=== PATIENT | female | born 1955 | race Caucasian/White ===

== ENCOUNTER 2020-05-23 15:38 | Inpatient (IN) | payer BC ==
[~2020-05-23] VITALS: Ht 170.2 cm; Wt 94.9 kg
--- NOTE | ~2020-05-23 | O ---
[facility] [place] [address] OPERATIVE REPORT Name: SOLEDAD IVORY Room #: 356-P [facility] IN M.R.#: [id number] Admission: 05/23/20 Attend Phys: Wily Ortez Discharge: 05/25/20 Date of : 57 Report #: [id number] THIS REPORT FOR: cc: CHARLEY GARCIA Physician not on staff Leonard Watters DPM ~ CC: CHARLEY Ortez Physician staff DATE OF SERVICE: 05/24/2020 PREOPERATIVE DIAGNOSIS: Right foot diabetic foot ulcer with osteomyelitis. POSTOPERATIVE DIAGNOSIS: Right foot diabetic foot ulcer with osteomyelitis and deep foot infection. PROCEDURE: Partial first ray resection and two hind foot debridement subcutaneous and tendon. DESCRIPTION OF PROCEDURE: The patient was transported to the operating room and placed on the operating table in supine position. General anesthesia was administered and the right lower extremity was prepped and draped in the usual sterile manner. Attention was directed to the right first MPJ where a racquet-type incision was made removing the hallux and exposing the head of the first metatarsal, which has significant necrotic tissue and infection. I resected the distal third of the first metatarsal. After removing the distal third metatarsal, I removed the sesamoid with the 15 blade. At this time, I noted that there was tracking of the infection proximally along the first metatarsal plantarly and back into the hind foot plantar to the calcaneus about midway, also tracked laterally about midway down the first metatarsal to the lateral aspect of the foot sub fifth metatarsal. I used a rongeur to remove all questionable tissue and removed the flexor hallucis longus tendon back far proximal as possible. I made a second incision to make sure I get a plantar foot cleaned out and get a good look at it one more plantarly so she would be weightbearing at the incision line. It did look very good, but there is still questionable tissue. I did send tissue for aerobic, anaerobic, fungal and lavaged this area out thoroughly. Two retention stitches to keep the wound ____ flaps for retraction and will be setting up of VeraFlo wound VAC probably on Thursday, and today is . Most likely, it will be a second procedure. I will reevaluate and see if this [facility] [address] [place] [address] OPERATIVE REPORT Name: SOLEDAD IVORY NANCY Room #: 356-P [facility] IN M.R.#: [id number] Admission: 05/23/20 Attend Phys: Wily Ortez Discharge: 05/25/20 Date of : 57 Report #: [id number] is necessary since she is feeling fine or if we need to make sure it was clean and then do a delayed wound closure. The patient left the left the operating suite in stable condition with neurovascular status intact. The patient will be followed by myself in the next day or two. By: 0908 Alok Watters, ISHMAEL /nt
--- NOTE | ~2020-05-23 | HC ---
[facility] [place] [address] CONSULTATION Name: SOLEDAD IVORY Room #: 356-P ADM IN M.R.#: [id number] Admission: 05/23/20 Attend Phys: Wily Ortez Discharge: Date of : 57 Report #: [id number] THIS REPORT FOR: cc: MASON GARCIA Physician not on staff Josiah Yoder MD ~ CC: MASON Ortez Physician staff DATE OF SERVICE: 05/24/2020 WOUND CARE CONSULTATION PERSONAL PHYSICIAN: Dr. Mason Garcia. CHIEF COMPLAINT: Right great toe wound with underlying osteomyelitis. HISTORY OF PRESENT ILLNESS: This is a 65-year-old white female who I saw in the wound clinic yesterday for chronic ulcer to her right great toe, which started approximately 3 months ago; however, due to the COVID-19 pandemic, she was afraid to coming to the hospital to be evaluated and the wound has gotten progressively worse, extremely foul smelling and in the clinic yesterday, it was felt that the patient most likely had underlying osteomyelitis with the cellulitis and need to be admitted for IV antibiotics and surgical debridement and possible amputation. The patient had an MRI last night, which confirmed the osteomyelitis of the right great toe and first metatarsal head. The patient was seen by Dr. Watters of Podiatry and is planning to have a first ray amputation performed later today. The patient also has ulcers on the right heel, which is a pressure ulcer and a chronic ulcer of the left fifth metatarsal head. The patient states all of these have been present once again for several months. The patient denies fevers or chills. The patient states that she does have some pain in her ulcerations, but that is usually when the wounds have been manipulated. The patient denies any other associated concerns at this time. PAST MEDICAL HISTORY: Significant for hypertension, hyperlipidemia, peripheral neuropathy, diabetes mellitus type 2. CURRENT MEDICATIONS: Multiple, I reviewed the patient's medication list. DRUG ALLERGIES: None. SOCIAL HISTORY: The patient does not smoke or drink alcohol. FAMILY HISTORY: Not pertinent to current medical condition. [facility] [address] [place] [address] CONSULTATION Name: SOLEDAD IVORY Room #: 356-P [facility] IN M.R.#: [id number] Admission: 05/23/20 Attend Phys: Wily Ortez Discharge: Date of : 57 Report #: [id number] REVIEW OF SYSTEMS: CONSTITUTIONAL: The patient denies fevers or chills. NEUROLOGIC: The patient complains of neuropathy in both feet, but denies headache. EYES: No complaints. ENT: No complaints. CARDIAC: The patient denies chest pain or palpitations. Does have chronic mild lower extremity edema. RESPIRATORY: The patient denies shortness of breath, cough or wheezes. GASTROINTESTINAL: The patient denies nausea, vomiting, or abdominal pain. GENITOURINARY: The patient denies urgency or frequency. MUSCULOSKELETAL: No complaints. SKIN: The patient has chronic ulcers on the right first metatarsal head, right heel and the left fifth metatarsal head. PHYSICAL EXAMINATION: VITAL SIGNS: Temperature 37.1, pulse 64, respirations 16, BP 169/77. GENERAL: This is an alert and oriented x 3, pleasant white female who is in absolutely no distress. HEENT: Normocephalic, atraumatic. Mucous membranes are slightly dry. Pupils are round. Sclerae white. NECK: Supple, nontender. LUNGS: Clear. HEART: Regular. ABDOMEN: Soft, nontender. EXTREMITIES: The patient moves all extremities without difficulty. Distal pulses are 1+ dorsalis pedis. On the right heel, there is a stage 3 decubitus ulcer, which is clean and granulating without signs of infection. There is no significant tunneling or undermining, 100% granulation tissue. On the left first metatarsal head is a necrotic foul-smelling ulceration with essentially 100% dark slough, which probes to bone with surrounding erythema and warmth. On the left foot on the fifth metatarsal head on the lateral aspect is a chronic ulcer with callus and central area of slough. Surrounding area is not erythematous or tender. Left dorsalis pedis is 1+. Left heel is intact. NEUROLOGIC: Cranial nerves 2-12 are grossly intact. Motor and sensory grossly intact. LABORATORY DATA: White count 7.0, hemoglobin 10.1. BUN 21, creatinine 1.3. IMAGING: Left lower extremity MRI confirms osteomyelitis of the left proximal first phalanx as well as the distal first metatarsal head. IMPRESSION: 1. Chronic ulcer, right first metatarsal head with osteomyelitis and cellulitis. 2. Chronic stage 3 decubitus ulcer, stage III, right heel. [address] [address] CONSULTATION Name: CACHORRO,SOLEDAD CRUZ Room #: 356-P ADM IN M.R.#: [id number] Admission: 05/23/20 Attend Phys: Wily Ortez Discharge: Date of : 57 Report #: [id number] 3. Chronic ulceration, left lateral foot, limited breakdown subcutaneous tissue. 4. Diabetes mellitus type 2. 5. Generalized debility. PLAN: The patient is scheduled for a first ray resection later this afternoon by Dr. Watters. We will continue to follow the patient postoperatively for wound care. We will start the patient on Aquacel Ag to the right heel and left lateral foot ulcerations. We will order Prevalon boots for the patient to wear at all times. We will make sure we maximize the patient's oral protein supplementation for healing. We will utilize physical and occupational therapy as the patient is able to. I appreciate the ability to consult and will continue to follow the patient. By: 1621 [id number] Josiah Yoder MD /sang
[2020-05-23 15:41] VITALS: BP 144/77
[2020-05-23] MEDS ORDERED: NORCO 10-325 T1 EACH PO (16:02)
[2020-05-23] MEDS ORDERED: BUSPIRONE HCL10 MG PO (16:02)
[2020-05-23] MEDS ORDERED: CARAFATE1 GM PO (16:03)
[2020-05-23] MEDS ORDERED: PLAVIX 75 MG TA75 MG PO (16:03)
[2020-05-23] MEDS ORDERED: LISINOPRIL2.5 MG PO (16:04)
[2020-05-23 16:16] LABS: ABSOLUTE NEUTROPHILS 4.7 thou/uL (1.4-8.2); BASOPHILS 0.8 % (0.0-2.0); EOSINOPHILS 1.7 % (0.0-3.0); HEMATOCRIT 29.9 % (37.0-47.0); HEMOGLOBIN 10.1 gm/dL (12.0-15.0); LYMPHOCYTES 24.5 % (24.0-44.0); MCH 30.3 pg (26.0-34.0); MCHC 33.8 g/dL (28.0-37.0); MCV 89.8 fL (80.0-100.0); MONOCYTES 6.1 % (1.0-8.0); PLATELET COUNT 390 thou/uL (150-400); POLYS 66.9 % (36.0-66.0); RBC 3.33 mil/uL (4.20-5.00); RDW 13.8 % (10.5-14.5)
[2020-05-23 16:25] LABS: CALCIUM 9.9 mg/dL (8.5-10.1); CREATININE 1.3 mg/dL (0.6-1.0); POTASSIUM 3.6 mmol/L (3.5-5.1)
[2020-05-23] MEDS ORDERED: BUSPIRONE HCL15 MG PO (16:29)
[2020-05-23] MEDS ORDERED: SYNTHROID150 MCG PO (16:29)
[2020-05-23] MEDS ORDERED: BENTYL 10 MG CA10 MG PO (16:30)
[2020-05-23] MEDS ORDERED: PEPCID40 MG PO (16:31)
[2020-05-23] MEDS ORDERED: METFORMIN HCL500 M3 PO ×2 (16:31)
[2020-05-23] MEDS ORDERED: CARVEDILOL12.5 MG PO (16:32)
[2020-05-23 17:11] LABS: CHOLESTEROL 125 mg/dL (<200); HDL CHOLESTEROL 32 mg/dL (>40); LDL CHOLESTEROL 61 mg/dL (<100); TC:HDL 3.9 Ratio (Not establshd); TRIGLYCERIDE 160 mg/dL (<150); VLDL 32 mg/dL (<40)
[2020-05-23 17:35] LABS: TSH 2.603 uIU/mL (0.358-3.740)
[2020-05-23 18:23] LABS: % SATURATION 10 % (20-39); IRON 23 ug/dL (50-170); TIBC 230 ug/dL (250-450)
[2020-05-23 21:19] VITALS: BP 163/91
[2020-05-23 22:00] VITALS: BP 160/87
[2020-05-24 00:30] VITALS: BP 142/69
--- NOTE | 2020-05-24 02:17 | NUR ---
PT ARRIVED ON UNIT FROM ER AT 2200. ADMITTED WITH DIABETIC FOOT WOUNDS. PICTURES TAKEN. DENIES PAIN. UP WITH ASSIST X1 TO BATHROOM. RESTING COMFORTABLY. NO NEEDS VOICED. CALL LIGHT WITHIN REACH. FREQUENT OBSERVATION.
[2020-05-24 04:36] VITALS: BP 131/69
[2020-05-24 08:52] VITALS: BP 169/77
[2020-05-24] MEDS ORDERED: NORCO 10-325 T1 EACH PO (10:11)
[2020-05-24] MEDS ORDERED: NORCO 5-325 TA1 EAC1 PO (10:13)
[2020-05-24] MEDS ORDERED: LYRICA225 MG PO (11:11)
[2020-05-24] MEDS ORDERED: XANAX 0.5 MG0.5 M1 PO (11:15)
[2020-05-24] MEDS ORDERED: VITAMIN D31250 MC1 PO (11:16)
[2020-05-24] MEDS ORDERED: SEROQUEL 50 MG50 M1 PO (11:18)
[2020-05-24] MEDS ORDERED: SYNTHROID150 MCG PO (11:20)
[2020-05-24] MEDS ORDERED: OXTELLAR XR300 MG PO (11:21)
[2020-05-24] MEDS ORDERED: ASA81BEC PO (11:22)
[2020-05-24] MEDS ORDERED: PRAVACHOL40 M1 PO (11:23)
[2020-05-24] MEDS ORDERED: CARISOPRODOL 3350 M1 PO (11:25)
--- NOTE | 2020-05-24 15:08 | NUR ---
INITIAL ASSESSMENT: Received consult. SW reviewed chart and spoke with nursing and attending physician. Pt was admitted from home due to cellultis of her right great toe. Pt currently off the unit have right partial 1st ray amputation. Per chart, pt does live at home. Therapy to evaluate pt after surgery for recommendation for discharge needs. SW to follow up with pt after surgery to eval and discuss discharge plans.
[2020-05-24 16:28] VITALS: BP 157/77
--- NOTE | 2020-05-24 17:48 | NUR ---
ASSUMED CARE OF PT AT 0700. PT ALERT AND ORIENTED X4 IN NO ACUTE DISTRESS. S/P R PARTIAL 1ST RAY AMPUTATION. WITHOUT BEARING WEIGHT ON RIGHT LEG, BLOOD NOTED TO DRESSING. CHANGED W/ GAUZE KERLIX AND DUTCH WRAP. TOES PALE BUT BLANCHABLE. VITALS STABLE. USING BED GAMEZ TO VOID. IV ABX INFUSING PER ORDER. ON CLEAR LIQUIDS. CHANGED TO MST STATUS. WCM.
[2020-05-24 20:15] VITALS: BP 175/77
[2020-05-25 00:06] LABS: GLYCOHEMOGLOBIN (HGB A1C) 5.3 % (4.8-5.6)
[2020-05-25 04:15] VITALS: BP 153/77
--- NOTE | 2020-05-25 04:30 | NUR ---
PATIENT IS PROGRESSING SLOWLY IN HER CARE PLAN. VITAL SIGNS STABLE WITH PATIENT HAVING NO COMPLAINTS OF NAUSEA. PATIENT DID COMPLAIN OF PAIN FREQUENTLY IN HER SURGICAL SITE WHICH WAS TREATED APPROPRIATELY THROUGH MEDICATIONS AND REPOSITIONING. FULLY ORIENTED, PATIENT IS ABLE TO CALL APPROPRIATELY FOR NEEDS AND PARTICIPATE IN CARE. PATIENT IS ON BEDREST DUE TO WEIGHT BEARING STATUS. CONTINUE PLAN OF CARE.
[2020-05-25 07:57] VITALS: BP 153/75
--- NOTE | 2020-05-25 08:39 | NUR ---
PATIENT SEEN FOR REHAB CONSULT ON 05/24/20 BY MATHEW BISWAS NP WITH DR. CORTES. PATIENT IS A CANDIDATE FOR ACUTE REHAB AND [facility] COULD ACCEPT WHEN PATIENT IS MEDICALLY READY, BUT [facility] IS OON FOR PATIENT'S BLUE CROSS FED PLAN. PATIENT DOES HAVE OON BENEFITS, BUT COST FOR OON WOULD BE CONSIDERABLY HIGHER FOR PATIENT. [employer]PUTY [employer] INFORMED.
--- NOTE | 2020-05-25 09:33 | NUR ---
CABRERA notified by BYRON RN that pt's insurance is out of network with [facility]. Pt will need to be transferred to an in-network facility. All other hospitals are in-network. CABRERA met with pt and dtr at bedside to discuss transfer. Both verbalize understanding and request transfer to a [facility], as pt normally goes to [facility] for medical care. Preference for [facility]. CABRERA placed call to the [facility] transfer center. Spoke with Caron. Provided clinical info and contact info for attending physician. Face sheet and copy of insurance cards faxed to the transfer center. CABRERA spoke with Malinda in radiology to request images to be uploaded to the [facility]. CABRERA updated attending physician and nursing. CABRERA is following to assist as needed with discharge planning.
[2020-05-25 15:20] VITALS: BP 179/88
--- NOTE | 2020-05-25 15:26 | NUR ---
ASSUMED PATIENT CARE AT APPROXIMATELY 0700. PATIENT AWAKE AND ALERT THROUGHOUT SHIFT, PAIN WELL CONTROLLED, DENIES NEED FOR PAIN MEDS. ALTHOUGH PATIENT COMPLAINING OF ANXIETY AND ORDERS OBTAINED FROM DR. VILLATORO FOR XANAX PRN. WILL CTM FOR EFFECTIVENESS. PATIENT TOLERATING DIET ORDERED. PATIENT WAS ABLE TO MOVE BOWEL MULTIPLE TIMES THIS SHIFT. PLAN FOR THIS PATIENT TO BE TRANSFERED TO [facility]. AWAITING ACCEPTANCE.
[2020-05-25 17:28] VITALS: BP 168/75
[2020-05-25 20:00] VITALS: BP 180/108
[2020-05-25 21:35] VITALS: BP 180/108
--- NOTE | 2020-05-25 21:37 | NUR ---
ASSUMED PT CARE AT 1900. TRANSPORTATION ARRIVED AT 1999. PT WAS TAKEN BY STRETCHER WITH ALL BELONGINGS AND PAPERWORK. VITALS SIGNS WERE CHARTED. [facility] WAS CALLED AND MADE AWARE THAT PT WAS ON HER WAY.
--- NOTE | 2020-05-28 18:06 | PATH ---
[facility] [address] [place] [address] PATHOLOGY RPT PROCEDURE Name: HAYDEE MARTINEZ Room #: 356-P DIS IN M.R.#: [id number] Admission: 05/23/20 Date of : 57 Discharge: 05/25/20 Report #: [id number] Path Case #: [id number] [facility] Accession Number: [id number] . 01 Material submitted: . toe - RIGHT GREAT TOE. Modifiers: right, great . 01 Clinical history: . Right DFU osteomyelitis . 02 Diagnosis: Right great toe, amputation: - Bone with acute osteomyelitis as well as osteonecrosis, compatible with osteomyelitis. - Margins showing reactive and viable bone as well as cartilage. (IUV/db; 05/28/2020) LBQ 05/28/2020 1543 Local . 02 Electronically signed: . Christina Contreras MD, Pathologist NPI- [id number] . 01 Gross description: . The specimen is received in formalin, labeled "Haydee Martinez, right great toe". Received is an amputated digit measuring 6.6 x 3.6 x 3.4 cm in greatest dimensions. The bone margin is smooth and concave in appearance, consistent with disarticulation. The bone and soft tissue margins are inked black. The nail is present displaying a pale hollingsworth and grossly unremarkable appearance. On the medial/proximal aspect of the toe at the skin margin, there is a poorly circumscribed, irregular in contour and light brown lesion measuring 1.6 x 1.0 cm, which grossly abuts the inked margin. A longitudinal cross-section through the lesion and underlying bone is submitted in cassette A1, following decalcification. . Also received within the specimen container are multiple segments of skin and underlying soft tissue admixed with fragments of bone, including a partial metatarsal, measuring 5.4 x 3.8 x 2.3 cm in greatest dimensions. The metatarsal displays one blunt, transected margin, and one smooth, disarticulated margin. The transected margin is inked blue. A full length longitudinal cross-section of the partial metatarsal is submitted from proximal to distal aspects in cassettes A2 and A3, following decalcification. (CAA; 05/25/2020) QAC/QAC 05/25/2020 1601 Local . 02 Pathologist provided ICD-10: M86.171, M87.9 [place] [address] PATHOLOGY RPT PROCEDURE Name: HAYDEE MARTINEZ Room #: 356-P DIS IN M.R.#: [id number] Admission: 05/23/20 Date of : 57 Discharge: 05/25/20 Report #: [id number] Path Case #: [id number] . 02 [facility] . [id number], [id number] Specimen Comment: A courtesy copy of this report has been sent to [phone] Specimen Comment: [phone], Specimen Comment: Report sent to ,DR VILLATORO / DR GARCIA Performed at: [address] [facility] [address], [place] [id number] MD Raj Rose MD Phone: [phone] Performed at: [address] [facility] [address] [id number] MD Christina Contreras MD Phone: [phone]
== END 2020-05-25 20:10 | disposition short-term general hospital (02) | DRG 616 ==
LOC: ER 15:38 → 3W 22:17
PROVIDERS: Emergency Medicine; Nurse Practitioner; ADMIT Hospitalist; ATTEND Hospitalist
PROC: 0J9Q0ZZ Drainage of Right Foot Subcutaneous Tissue and Fascia, Open Approach (ICD-10-PCS; principal; 2020-05-24)
PROC: 0Y6M0Z9 Detachment at Right Foot, Partial 1st Ray, Open Approach (ICD-10-PCS; principal; 2020-05-24)
DX: E11.621 Type 2 diabetes mellitus with foot ulcer (principal); L89.813 Pressure ulcer of head, stage 3; L03.115 Cellulitis of right lower limb; M86.8X7 Other osteomyelitis, ankle and foot; E11.51 Type 2 diabetes mellitus with diabetic peripheral angiopathy without gangrene; N17.9 Acute kidney failure, unspecified; E11.69 Type 2 diabetes mellitus with other specified complication; E78.5 Hyperlipidemia, unspecified; E03.9 Hypothyroidism, unspecified; G89.29 Other chronic pain; M54.9 Dorsalgia, unspecified; K27.9 Peptic ulcer, site unspecified, unspecified as acute or chronic, without hemorrhage or perforation; E28.2 Polycystic ovarian syndrome; I12.9 Hypertensive chronic kidney disease with stage 1 through stage 4 chronic kidney disease, or unspecified chronic kidney disease; E11.22 Type 2 diabetes mellitus with diabetic chronic kidney disease; E11.42 Type 2 diabetes mellitus with diabetic polyneuropathy; Z20.828 Contact with and (suspected) exposure to other viral communicable diseases; Z90.49 Acquired absence of other specified parts of digestive tract; Z90.710 Acquired absence of both cervix and uterus; Z79.899 Other long term (current) drug therapy
CPT/HCPCS: 10779; 50010; 50101; 50386; 50951; 56525; 56527; 57091; 62110; 62850; 70005